=== PATIENT | male | born 1960 | race African-American/Black ===

== ENCOUNTER 2020-09-29 12:02 | Emergency (ER) | payer OTHER ==
[~2020-09-29] VITALS: Ht 182.9 cm; Wt 150.0 kg
[2020-09-29] MEDS ORDERED: HYDROCODONE/ACETAMINOPHEN 5/325MG TABLET PO ONE (12:30)
[2020-09-29 13:04] VITALS: BP 182/99
[2020-09-29] MEDS ORDERED: CEPHALEXIN 250MG CAPSULE PO ONE (13:30)
== END 2020-09-29 15:38 | disposition home or self-care (01) ==
LOC: ER 12:02
DX: S62.603B Fracture of unspecified phalanx of left middle finger, initial encounter for open fracture (principal); I10 Essential (primary) hypertension; W26.8XXA Contact with other sharp object(s), not elsewhere classified, initial encounter; Y93.89 Activity, other specified; Y92.89 Other specified places as the place of occurrence of the external cause; Y99.8 Other external cause status
CPT/HCPCS: 12001; 73130; 99283

== ENCOUNTER 2020-10-01 09:31 | Emergency (ER) | payer OTHER ==
[~2020-10-01] VITALS: Ht 182.9 cm; Wt 112.0 kg
[2020-10-01] MEDS ORDERED: BACITRACIN ZINC OINT UDPKT TOP ONE (10:15)
[2020-10-01 10:43] VITALS: BP 166/89
== END 2020-10-01 10:49 | disposition home or self-care (01) ==
LOC: ER 09:31
DX: M79.645 Pain in left finger(s) (principal); I10 Essential (primary) hypertension; Z48.00 Encounter for change or removal of nonsurgical wound dressing
CPT/HCPCS: 99282